=== PATIENT | female | born 1960 | race Caucasian/White ===

== ENCOUNTER 2018-11-01 06:59 | Inpatient (IN) | payer MEDICAID ==
[~2018-11-01] VITALS: Ht 160 cm; Wt 109.8 kg
[2018-11-01] MEDS ORDERED: LACTATED RINGERS 1,000 ML IV SCH (07:00)
[2018-11-01] MEDS ORDERED: HYDR-4005 PO (08:59)
[2018-11-01] MEDS ORDERED: SIMV10TA6 PO (08:59)
[2018-11-01] MEDS ORDERED: OMEP20CA10 PO (08:59)
[2018-11-01] MEDS ORDERED: GABA800T97 PO (08:59)
[2018-11-01] MEDS ORDERED: LISI-186 PO (09:18)
[2018-11-01] MEDS ORDERED: PROPOFOL 200MG/20ML VIAL IV ONE (09:27)
[2018-11-01] MEDS ORDERED: ROCURONIUM BROMIDE 10MG/ML VIAL 5ML IV ONE (09:27)
[2018-11-01] MEDS ORDERED: FENTANYL CITRATE/PF 50MCG/ML 5ML VIAL ONE (09:27)
[2018-11-01] MEDS ORDERED: MIDAZOLAM HCL 2 MG/2 ML VIAL ONE (09:28)
[2018-11-01] MEDS ORDERED: TRANEXAMIC ACID 1,000 MG in SODIUM CHLORIDE 0.9% 100 ML IV NR (09:30)
[2018-11-01] MEDS ORDERED: METHYLENE BLUE 50 MG/10 ML AMP IV ONE (09:30)
[2018-11-01] MEDS ORDERED: BUPIVACAINE/EPINEPH/PF 0.25%/0.0005 10ML ONE (09:30)
[2018-11-01] MEDS ORDERED: MORPHINE SULFATE/PF 1MG/ML 10ML AMP ONE (09:30)
[2018-11-01] MEDS ORDERED: EPINEPHRINE 1:1000 1 MG/ML AMP ONE (09:31)
[2018-11-01] MEDS ORDERED: BACITRACIN 50,000 UNITS/VIAL ONE (09:32)
[2018-11-01] MEDS ORDERED: CEFAZOLIN SODIUM 1000MG/VIAL ONE (10:12)
[2018-11-01] MEDS ORDERED: HYDROMORPHONE HCL/PF 2MG/ML (OR) ONE (10:23)
[2018-11-01] MEDS ORDERED: GENTAMICIN SULF 40MG/ML 2ML VIAL ONE (10:40)
[2018-11-01] MEDS ORDERED: VANCOMYCIN HCL 500 MG/VIAL ONE ×2 (11:39→11:47)
[2018-11-01] MEDS ORDERED: ALBUTEROL 90MCG/PUFF 17GM INHALER INH ONE (13:16)
[2018-11-01] MEDS ORDERED: ESMOLOL HCL 10MG/ML 10ML VIAL IV ONE (13:25)
[2018-11-01] MEDS ORDERED: MAGNESIUM HYDROXIDE 400MG/5ML 30ML UDC PO PRN (13:45)
[2018-11-01] MEDS ORDERED: ZOLPIDEM TARTRATE 5MG TABLET PO PRN (13:45)
[2018-11-01] MEDS ORDERED: HYDROCODONE/ACETAMINOPHEN 10/325MG TABLET PO PRN (13:45)
[2018-11-01] MEDS ORDERED: ACETAMINOPHEN 325MG TABLET PO PRN (13:45)
[2018-11-01] MEDS ORDERED: ONDANSETRON HCL 4MG/2ML INJ IV PRN (13:45)
[2018-11-01] MEDS ORDERED: ONDANSETRON HCL 4MG/2ML INJ IV NR (14:00)
[2018-11-01] MEDS ORDERED: HYDROMORPHONE HCL/PF 2MG/ML CPJ IV PRN (14:00)
[2018-11-01] MEDS ORDERED: MEPERIDINE HCL/PF 25MG/ML CPJ IV PRN (14:00)
[2018-11-01] MEDS ORDERED: FENTANYL CITRATE/PF 50MCG/ML 2ML VIAL IV PRN (14:00)
[2018-11-01] MEDS ORDERED: TRIA1TAB94 PO (14:01)
[2018-11-01] MEDS ORDERED: DIPHENHYDRAMINE INJ IV PRN (14:30)
[2018-11-01] MEDS ORDERED: NALOXONE INJ IV PRN (14:30)
[2018-11-01] MEDS ORDERED: HYDROMORPHONE PCA 10MG/50ML IV PRN (14:30)
[2018-11-01] MEDS ORDERED: ONDANSETRON INJ IV PRN (14:45)
[2018-11-01] MEDS ORDERED: LIDOCAINE HCL 1% 20ML VIAL (Pyxis) INJ ONE (14:50)
[2018-11-01] MEDS ORDERED: ROPIVACAINE HCL 10MG/ML 20 ML VIAL EPI ONE (14:50)
[2018-11-01 16:10] VITALS: BP 117/92
[2018-11-01] MEDS: DOCUSATE SODIUM 100MG CAPSULE PO SCH (17:30)
[2018-11-01 20:00] VITALS: BP 130/90
[2018-11-01] MEDS: CELECOXIB 200MG CAPSULE PO SCH (20:59)
[2018-11-01] MEDS: CEFAZOLIN 2,000 MG in DEXT 5% WATER 100 ML IV SCH (20:59)
[2018-11-02] VITALS: BP 148/80
[2018-11-02 04:00] VITALS: BP 139/80
[2018-11-02] MEDS: CEFAZOLIN 2,000 MG in DEXT 5% WATER 100 ML IV SCH (05:02)
[2018-11-02 05:32] LABS: BASOPHILS % 0.2 % (0.0-2.0); HEMATOCRIT. 37.9 % (36.0-48.0); HEMOGLOBIN. 12.6 g/dL (12.0-16.0); LYMPHOCYTES % 14.4 % (20.0-50.0); MEAN CORPUSCULAR HEMOGLOBIN 29.5 pg (28.0-32.0); MEAN CORPUSCULAR VOLUME 88.8 fL (81.0-99.0); MEAN PLATELET VOLUME 9.1 fl (7.4-10.4); MONOCYTES % 6.5 % (2.0-8.0); NEUTROPHILS % 78.9 % (40.0-76.0); PLATELET 264 x1000/uL (130-400); RED BLOOD CELL COUNT 4.27 mill/uL (4.2-5.4); RED CELL DISTRIBUTION WIDTH 13.1 % (11.6-14.6)
[2018-11-02 05:49] LABS: CHLORIDE 104 mEq/L (98-107)
[2018-11-02] MEDS: HYDROCODONE/ACETAMINOPHEN 10/325MG TABLET PO PRN (07:54)
[2018-11-02 08:00] VITALS: BP 127/76
[2018-11-02] MEDS ORDERED: ENOXAPARIN 30MG/0.3ML SYR SUBCUT SCH (09:00)
[2018-11-02] MEDS: CELECOXIB 200MG CAPSULE PO SCH ×2 (09:32→18:19)
[2018-11-02] MEDS: ENOXAPARIN 30MG/0.3ML SYR SUBCUT SCH ×2 (09:32→18:22)
[2018-11-02] MEDS: DOCUSATE SODIUM 100MG CAPSULE PO SCH ×2 (09:32→18:22)
[2018-11-02 12:00] VITALS: BP 134/73
[2018-11-02] MEDS: OMEPRAZOLE 20MG CAPSULE EXTENDED RELEASE PO SCH ×2 (14:52→21:10)
[2018-11-02 16:00] VITALS: BP 134/71
[2018-11-02] MEDS: LISINOPRIL 5MG TABLET PO SCH (16:45)
[2018-11-02] MEDS: HYDROCHLOROTHIAZIDE 25MG TABLET PO SCH (18:19)
[2018-11-02 20:00] VITALS: BP 129/68
[2018-11-02] MEDS ORDERED: ATORVASTATIN CALCIUM 10MG TABLET PO SCH (21:00)
[2018-11-03] VITALS: BP 133/63
[2018-11-03 04:00] VITALS: BP 133/73
[2018-11-03] MEDS: OMEPRAZOLE 20MG CAPSULE EXTENDED RELEASE PO SCH (05:05)
[2018-11-03] MEDS: HYDROCODONE/ACETAMINOPHEN 10/325MG TABLET PO PRN (05:06)
[2018-11-03 07:19] LABS: BASOPHILS % 0.2 % (0.0-2.0); EOSINOPHILS % 0.1 % (0.0-5.0); HEMATOCRIT. 33.7 % (36.0-48.0); HEMOGLOBIN. 11.2 g/dL (12.0-16.0); LYMPHOCYTES % 16.1 % (20.0-50.0); MEAN CORPUSCULAR HEMOGLOBIN 29.4 pg (28.0-32.0); MEAN CORPUSCULAR VOLUME 88.2 fL (81.0-99.0); MEAN PLATELET VOLUME 8.7 fl (7.4-10.4); MONOCYTES % 7.9 % (2.0-8.0); NEUTROPHILS % 75.7 % (40.0-76.0); PLATELET 231 x1000/uL (130-400); RED BLOOD CELL COUNT 3.82 mill/uL (4.2-5.4)
[2018-11-03 07:43] LABS: CHLORIDE 101 mEq/L (98-107)
[2018-11-03 07:56] LABS: LDL CHOLESTEROL 82 mg/dL (5-100)
[2018-11-03 07:58] LABS: HDL CHOLESTEROL 54 mg/dL (40-59)
[2018-11-03 08:00] VITALS: BP 116/74
[2018-11-03] MEDS: LISINOPRIL 5MG TABLET PO SCH (08:38)
[2018-11-03] MEDS: ENOXAPARIN 30MG/0.3ML SYR SUBCUT SCH (09:07)
[2018-11-03] MEDS: HYDROCHLOROTHIAZIDE 25MG TABLET PO SCH (09:08)
[2018-11-03] MEDS: DOCUSATE SODIUM 100MG CAPSULE PO SCH (09:08)
[2018-11-03] MEDS: CELECOXIB 200MG CAPSULE PO SCH (09:09)
[2018-11-03] MEDS ORDERED: POTASSIUM CHLORIDE 20MEQ TABLET SR PO NR (10:15)
[2018-11-03 12:22] VITALS: BP 122/68
[2018-11-03 15:35] VITALS: BP 122/68
[2018-11-03 16:20] VITALS: BP 125/75
== END 2018-11-03 16:38 | disposition home or self-care (01) | DRG 302 ==
LOC: OR 06:59 → 6EST 07:00
PROVIDERS: ADMIT Orthopaedic Surgery; ATTEND Orthopaedic Surgery
PROC: 0SRC0J9 Replacement of Right Knee Joint with Synthetic Substitute, Cemented, Open Approach (ICD-10-PCS; principal; 2018-11-01)
DX: M17.0 Bilateral primary osteoarthritis of knee (principal); Z68.41 Body mass index [BMI] 40.0-44.9, adult; E66.9 Obesity, unspecified; E78.5 Hyperlipidemia, unspecified; I10 Essential (primary) hypertension; M65.861 Other synovitis and tenosynovitis, right lower leg; M25.761 Osteophyte, right knee; E78.00 Pure hypercholesterolemia, unspecified; E87.6 Hypokalemia; G89.29 Other chronic pain; Z79.899 Other long term (current) drug therapy; Z79.82 Long term (current) use of aspirin
CPT/HCPCS: 36415; 73560; 80048; 80061; 86850; 86900; 88305; 88311; 97110; 97116; 97163; 97166; 97530; C1713; C1776; J0171; J0690; J1170; J1200; J1580; J1650; J2250; J2274; J2405; J2704; J2795; J3010; J3370; J3490; J7050; J7060; J7070; L1830; Q9968

== ENCOUNTER 2018-12-30 13:37 | Emergency (ER) | payer MEDICAID ==
[~2018-12-30] VITALS: Ht 160 cm; Wt 112.0 kg
[~2018-12-30 13:37] MED LIST: GABA800T97 PO; HYDR-4005 PO; LISI-186 PO; OMEP20CA10 PO; SIMV10TA6 PO; TRIA1TAB94 PO
[2018-12-30 16:12] VITALS: BP 132/86
== END 2018-12-30 16:41 | disposition home or self-care (01) ==
LOC: ER 15:22
DX: M79.661 Pain in right lower leg (principal); I10 Essential (primary) hypertension; E78.00 Pure hypercholesterolemia, unspecified; Z96.651 Presence of right artificial knee joint; Z79.899 Other long term (current) drug therapy
CPT/HCPCS: 93971; 99284

== ENCOUNTER 2019-07-11 08:59 | Day surgery (SDC) | payer MEDICAID ==
[~2019-07-11] VITALS: Ht 162.6 cm; Wt 113.4 kg
[~2019-07-11 08:59] MED LIST changes: -OMEP20CA10 PO; +OMEP20CA5 PO
[2019-07-11] MEDS ORDERED: SODIUM BICARBONATE 4% (2.4MEQ) 5ML VIAL IV ONE (10:13)
[2019-07-11] MEDS ORDERED: LIDOCAINE HCL 1% 20ML VIAL (Pyxis) INJ ONE (10:13)
[2019-07-11 11:42] LABS: GLUCOSE CSF 68 mg/dL (41-75)
== END 2019-07-11 15:25 | disposition home or self-care (01) ==
LOC: RADANGIO 08:59
PROVIDERS: ATTEND Psychiatry & Neurology Neurology
DX: G35 Multiple sclerosis (principal); Z79.899 Other long term (current) drug therapy; Z83.3 Family history of diabetes mellitus
CPT/HCPCS: 62270; 77003; 82040; 82042; 82784; 82945; 83873; 83916; 84157; 89050; J3490

== ENCOUNTER 2021-05-28 05:30 | Inpatient (IN) | payer OTHER, MEDICAID ==
[2021-05-28] VITALS (63 sets, daily range): BP systolic 87–163; BP diastolic 23–92
[~2021-05-28] VITALS: Ht 162.6 cm; Wt 119.7 kg
[~2021-05-28 05:30] MED LIST changes: +ALBU18HF2 IH; +ATOR20TA65 PO; +GABA-532 PO; -GABA800T97 PO; +GLIP2.5T3 PO; -LISI-186 PO; +LOSA100T32 PO; +METF-414 PO; +METH-612 PO; +OMEP20CA14 PO; -OMEP20CA5 PO; -SIMV10TA6 PO
[2021-05-28] MEDS ORDERED: THROMBIN (BOVINE) 5000 UNITS/VIAL TOP ONE (06:28)
[2021-05-28] MEDS ORDERED: BACITRACIN 50,000 UNITS/VIAL ONE (06:28)
[2021-05-28] MEDS ORDERED: LIDOCAINE HCL/EPINEPHRINE 1%-EPI 1:100,000 20 ML VIAL ONE (06:28)
[2021-05-28] MEDS ORDERED: MORPHINE SULFATE 4 MG/ML CPJ (NOT FOR IM USE) IV PRN (07:30)
[2021-05-28] MEDS ORDERED: NALOXONE HCL 0.4MG/ML VIAL IV PRN (08:00)
[2021-05-28] MEDS ORDERED: HYDROMORPHONE HCL/PF 2MG/ML CPJ IV PRN (08:45)
[2021-05-28] MEDS ORDERED: MEPERIDINE HCL/PF 25MG/ML CPJ IV PRN (08:45)
[2021-05-28] MEDS ORDERED: ONDANSETRON HCL 4MG/2ML INJ IV PRN (08:45)
[2021-05-28] MEDS ORDERED: LABETALOL 5MG/ML SYR 20 MG/4 ML SYRINGE IV PRN (08:45)
[2021-05-28] MEDS: DEXT 5%/LACTATED RINGERS 1,000 ML IV SCH ×2 (10:02→21:53)
[2021-05-28] MEDS ORDERED: HYDROCODONE/ACETAMINOPHEN 5/325MG TABLET PO PRN (10:30)
[2021-05-28] MEDS ORDERED: NICARDIPINE 100 MG in SODIUM CHLORIDE 0.9% 60 ML IV PRN (10:30)
[2021-05-28] MEDS ORDERED: NALOXONE INJ IV PRN (10:45)
[2021-05-28] MEDS ORDERED: DIPHENHYDRAMINE INJ IV PRN (10:45)
[2021-05-28] MEDS ORDERED: ONDANSETRON INJ IV PRN (10:45)
[2021-05-28] MEDS ORDERED: HYDROMORPHONE PCA 10MG/50ML IV PRN (11:00)
[2021-05-28] MEDS: DEXAMETHASONE 4MG/ML 1ML VIAL IV SCH ×3 (11:46→23:41)
[2021-05-28] MEDS ORDERED: LIDOCAINE HCL 1% 20ML VIAL (Pyxis) INJ ONE (13:20)
[2021-05-28] MEDS ORDERED: CEFAZOLIN SODIUM 1000MG/VIAL IV SCH (14:00)
[2021-05-28] MEDS: CEFAZOLIN 1000MG PREMIX 50 ML IV SCH ×2 (14:31→21:53)
[2021-05-28] MEDS ORDERED: IPRATROPIUM/ALBUTEROL 0.5-3(2.5)MG/3ML NEB HHN PRN (16:00)
[2021-05-28] MEDS ORDERED: DEXTROSE 50% WATER 50ML SYRINGE IV PRN (16:45)
[2021-05-28 17:01] LABS: CLARITY URINE CLEAR (CLEAR); COLOR URINE YELLOW (YELLOW); KETONES URINE NEGATIVE (NEGATIVE); LEUKOCYTE ESTERASE URINE NEGATIVE (NEGATIVE); NITRITE URINE NEGATIVE (NEGATIVE); OCCULT BLOOD URINE NEGATIVE (NEGATIVE); PROTEIN URINE NEGATIVE (NEGATIVE); SPECIFIC GRAVITY URINE 1.022 (1.005-1.030); UROBILINOGEN URINE 0.2 E.U./dL (0.2-1.0)
[2021-05-28] MEDS: INSULIN LISPRO 100 UNITS/ML SUBCUT SCH ×2 (17:42→21:53)
[2021-05-28] MEDS ORDERED: PNEUMOCOCCAL 23-VAL P-SAC VAC 0.5 ML IM ONE (20:00)
[2021-05-28] MEDS: BLOOD SUGAR DIAGNOSTIC STRIP TEST SCH (21:36)
[2021-05-28 21:44] LABS: HEMATOCRIT. 35.1 % (36.0-48.0); MEAN CORPUSCULAR HEMOGLOBIN 29.9 pg (28.0-32.0); MEAN CORPUSCULAR VOLUME 87.4 fL (81.0-99.0); MEAN PLATELET VOLUME 9.7 fl (7.4-10.4); PLATELET 300 x1000/uL (130-400); RED BLOOD CELL COUNT 4.02 mill/uL (4.2-5.4); RED CELL DISTRIBUTION WIDTH 14.1 % (11.6-14.6)
[2021-05-28 21:57] LABS: CHLORIDE 112 mEq/L (98-107)
[2021-05-28 22:27] LABS: PLATELET ESTIMATE NORMAL
[2021-05-29] VITALS (47 sets, daily range): BP systolic 96–158; BP diastolic 51–92
[2021-05-29] MEDS: DEXAMETHASONE 4MG/ML 1ML VIAL IV SCH (05:46)
[2021-05-29] MEDS: CEFAZOLIN 1000MG PREMIX 50 ML IV SCH ×2 (05:46→13:39)
[2021-05-29] MEDS: INSULIN LISPRO 100 UNITS/ML SUBCUT SCH ×4 (05:46→20:27)
[2021-05-29] MEDS: BLOOD SUGAR DIAGNOSTIC STRIP TEST SCH ×4 (05:46→20:26)
[2021-05-29 06:14] LABS: HEMATOCRIT. 33.3 % (36.0-48.0); HEMOGLOBIN. 11.1 g/dL (12.0-16.0); MEAN CORPUSCULAR HEMOGLOBIN 29.8 pg (28.0-32.0); MEAN CORPUSCULAR VOLUME 89.7 fL (81.0-99.0); MEAN PLATELET VOLUME 9.4 fl (7.4-10.4); PLATELET 274 x1000/uL (130-400); RED BLOOD CELL COUNT 3.71 mill/uL (4.2-5.4); RED CELL DISTRIBUTION WIDTH 13.9 % (11.6-14.6)
[2021-05-29 09:36] LABS: PLATELET ESTIMATE NORMAL
[2021-05-29] MEDS ORDERED: DIAZEPAM 5 MG TABLET PO NR (10:15)
[2021-05-29 10:23] LABS: CHLORIDE 112 mEq/L (98-107)
[2021-05-29] MEDS ORDERED: ACETAMINOPHEN 325MG TABLET PO PRN (10:45)
[2021-05-29] MEDS: GLIPIZIDE XL 2.5MG TABLET PO SCH ×2 (13:39→16:51)
[2021-05-29] MEDS: METFORMIN HCL 500MG TABLET PO SCH (16:51)
[2021-05-30] VITALS (8 sets, daily range): BP systolic 127–167; BP diastolic 64–89
[2021-05-30] MEDS ORDERED: CLONIDINE 0.1MG TABLET PO PRN (02:00)
[2021-05-30] MEDS ORDERED: FAMOTIDINE 20MG TABLET PO NR (02:00)
[2021-05-30 05:40] LABS: HEMATOCRIT. 31.8 % (36.0-48.0); HEMOGLOBIN. 10.8 g/dL (12.0-16.0); LYMPHOCYTES % 15.4 % (20.0-50.0); MEAN CORPUSCULAR HEMOGLOBIN 29.7 pg (28.0-32.0); MEAN CORPUSCULAR VOLUME 87.4 fL (81.0-99.0); MEAN PLATELET VOLUME 9.2 fl (7.4-10.4); MONOCYTES % 4.5 % (2.0-8.0); NEUTROPHILS % 80.1 % (40.0-76.0); PLATELET 261 x1000/uL (130-400); RED BLOOD CELL COUNT 3.65 mill/uL (4.2-5.4)
[2021-05-30 05:42] LABS: CHLORIDE 112 mEq/L (98-107)
[2021-05-30] MEDS ORDERED: OMEPRAZOLE 20MG CAPSULE EXTENDED RELEASE PO SCH (06:30)
[2021-05-30] MEDS: INSULIN LISPRO 100 UNITS/ML SUBCUT SCH ×2 (07:46→12:50)
[2021-05-30] MEDS: BLOOD SUGAR DIAGNOSTIC STRIP TEST SCH ×2 (07:46→13:07)
[2021-05-30] MEDS: GLIPIZIDE XL 2.5MG TABLET PO SCH (08:52)
[2021-05-30] MEDS: METFORMIN HCL 500MG TABLET PO SCH (08:52)
[2021-05-30] MEDS ORDERED: LOSARTAN POTASSIUM 100 MG TABLET PO SCH (09:00)
[2021-05-30] MEDS ORDERED: CALCIUM CARBONATE 500MG TABLET CHEW PO NR (09:00)
[2021-05-30] MEDS ORDERED: POTASSIUM CHLORIDE 20MEQ TABLET SR PO NR (12:15)
[2021-05-30] MEDS ORDERED: AMLO5TAB88 MT (13:03)
[2021-05-30] MEDS ORDERED: AMLODIPINE 5MG TABLET PO SCH (13:15)
[2021-05-30] MEDS ORDERED: FAMOTIDINE 20MG TABLET PO SCH (21:00)
[2021-05-30] MEDS ORDERED: ATORVASTATIN CALCIUM 20MG TABLET PO SCH (21:00)
== END 2021-05-30 17:20 | disposition home or self-care (01) | DRG 471 ==
LOC: OR 05:30 → MICUSO 05:31 → 6EST 05-30 05:05
PROVIDERS: ADMIT Internal Medicine; ATTEND Internal Medicine
PROC: 0RG20A0 Fusion of 2 or more Cervical Vertebral Joints with Interbody Fusion Device, Anterior Approach, Anterior Column, Open Approach (ICD-10-PCS; principal; 2021-05-28)
PROC: 0RB30ZZ Excision of Cervical Vertebral Disc, Open Approach (ICD-10-PCS; 2021-05-28)
PROC: 4A11X4G Monitoring of Peripheral Nervous Electrical Activity, Intraoperative, External Approach (ICD-10-PCS; 2021-05-28)
PROC: 02HV33Z Insertion of Infusion Device into Superior Vena Cava, Percutaneous Approach (ICD-10-PCS; 2021-05-28)
PROC: B548ZZA Ultrasonography of Superior Vena Cava, Guidance (ICD-10-PCS; 2021-05-28)
DX: M47.12 Other spondylosis with myelopathy, cervical region (principal); G82.50 Quadriplegia, unspecified; M47.22 Other spondylosis with radiculopathy, cervical region; E11.9 Type 2 diabetes mellitus without complications; E78.5 Hyperlipidemia, unspecified; K21.9 Gastro-esophageal reflux disease without esophagitis; M19.90 Unspecified osteoarthritis, unspecified site; Z96.651 Presence of right artificial knee joint
CPT/HCPCS: 36415; 71045; 72040; 72141; 76000; 76937; 80048; 81003; 82962; 83036; 85025; 86850; 86900; 88304; 88305; 88311; 95863; 95925; 95926; 95928; 95929; 97116; 97162; 97166; 97530; C1713; C1725; J0360; J0690; J1100; J1815; J2250; J2270; J2405; J2704; J2710; J3010; J3490; J7040; J7121; L0172; C1762